=== PATIENT | male | born 1950 | race Hispanic/Latino ===

== ENCOUNTER 2020-11-17 10:43 | Outpatient (CLI) | payer MEDICARE, SELFPAY ==
[2020-11-17 12:11] LABS: Add Urine Microscopic? YES; Appearance Urine Cloudy (Clear); Bilirubin Urine Negative (Negative); Blood Urine 1+ (Negative); Color Urine Yellow (Yellow); Glucose Urine UA Negative (Negative); Ketones Urine Negative (Negative); Leukocyte Esterase Ur 3+ LEU/UL (NEGATIVE); Nitrate Urine Negative (Negative); Protein Urine 1+ mg/dL (Negative); Specific Grav Ur 1.011 (1.001-1.035); Urobilinogen Urine Negative mg/dL (<2.0); WBC Urine >75 /hpf (0-3)
== END 2020-11-17 10:44 | disposition home or self-care (01) ==
PROVIDERS: PCP Family Medicine
DX: N13.30 Unspecified hydronephrosis (principal)
CPT/HCPCS: 81001